=== PATIENT | female | born 1960 | race Caucasian/White ===

== ENCOUNTER → 2016-05-18 | Outpatient (CLI) | payer OTHER | END | disposition home or self-care (01) | LOC: RAD.S 16:42 | DX: M25.562 Pain in left knee (principal); Z86.718 Personal history of other venous thrombosis and embolism ==

== ENCOUNTER → 2016-08-27 | Outpatient (CLI) | payer OTHER | END | disposition home or self-care (01) | LOC: RAD.S 08:30 | DX: Z12.31 Encounter for screening mammogram for malignant neoplasm of breast (principal) ==